=== PATIENT | female | born 1950 | race Two or more races ===

== ENCOUNTER 2019-07-14 15:41 | Emergency (ER) | payer MEDICAID, OTHER ==
[~2019-07-14] VITALS: Ht 165.1 cm; Wt 54.4 kg
[2019-07-14 15:45] VITALS: BP 0/0
[2019-07-14] MEDS ORDERED: SODIUM BICARBONATE 8.4% INJ 50ML SYRINGE IV ONE (15:48)
[2019-07-14] MEDS ORDERED: EPINEPHrine HCL 1 MG/10 ML SYRG IV ONE (15:48)
== END 2019-07-14 16:06 | disposition expired ==
LOC: EDBD 15:41 → ER 15:47
DX: I46.9 Cardiac arrest, cause unspecified (principal)
CPT/HCPCS: 31500; 92950; 99285; J0171